=== PATIENT | male | born 1950 | race Caucasian/White ===

== ENCOUNTER 2019-12-20 04:15 | Outpatient (CLI) | payer OTHER, SELFPAY ==
[2019-12-20 09:12] LABS: HGB 15.1 g/dL (13.5-17.5); Mean Corp. HGB Concentration 32.8 g/dL (32.0-36.0); Mean Corpuscular Hemoglobin 29.3 pg (27.0-33.0); Mean Corpuscular Volume 89.3 fL (80-95); Mean Platelet Volume 9.3 fL (8.0-11.0); Platelet Count 238 x1000/uL (130-400); RBC 5.15 m/cumm (4.50-6.00); RBC Distribution Width 13.8 % (11.8-14.1); White Blood Cell Count 5.46 k/cumm (4.4-10.8)
[2019-12-20 10:15] LABS: ALT 32 U/L (16-63); AST 18 U/L (15-37); Albumin 3.8 g/dL (3.4-5.0); Alkaline Phosphatase 56 U/L (46-116); Anion Gap 6.1 mmol/L (3-11); BUN 21 mg/dL (7-18); Bilirubin, Total 0.5 mg/dL (0.2-1.0); CO2 30.9 mmol/L (21.0-32.0); CREATININE 0.99 mg/dL (0.70-1.30); Calcium 9.2 mg/dL (8.5-10.1); Chloride 104 mmol/L (98-107); Glucose 102 mg/dL (74-106); Sodium 141 mmol/L (136-145); Total Protein 6.7 g/dL (6.4-8.2)
== END 2019-12-20 04:35 ==
PROVIDERS: PCP Family Medicine; Visit Provider Family Medicine
DX: I10 Essential (primary) hypertension (principal)
CPT/HCPCS: 36415; 80053; 85027

== ENCOUNTER 2021-01-28 02:56 | Outpatient (CLI) | payer OTHER, SELFPAY ==
[2021-01-28 12:35] LABS: CREATININE 1.1 mg/dL (0.70-1.30); Calculated LDL 115 mg/dL (<100); Cholesterol 188 mg/dL (<200); HDL Cholesterol 46 mg/dL (40-60); Potassium 4.3 mmol/L (3.5-5.1); Triglyceride 136 mg/dL (<150)
[2021-01-28 17:32] LABS: PSA, Screening 0.7 ng/mL (0.0-6.5)
== END 2021-01-28 02:57 | disposition home or self-care (01) ==
PROVIDERS: PCP Nurse Practitioner Family; Visit Provider Family Medicine
DX: E78.5 Hyperlipidemia, unspecified (principal); I10 Essential (primary) hypertension; Z12.5 Encounter for screening for malignant neoplasm of prostate
CPT/HCPCS: 36415; 80061; 84153; 82565; 84132

== ENCOUNTER 2022-05-27 10:48 | Outpatient (REF) | payer OTHER, SELFPAY ==
[2022-05-26 21:13] LABS: Uric Acid 5.7 mg/dL (3.5-7.2)
== END 2022-05-27 10:49 | disposition home or self-care (01) ==
LOC: LBN 10:48
PROVIDERS: PCP Nurse Practitioner Family; Visit Provider Nurse Practitioner Family
DX: M79.671 Pain in right foot (principal)
CPT/HCPCS: 84550

== ENCOUNTER → 2022-05-28 10:56 | Outpatient (CLI) | payer OTHER, SELFPAY ==
--- NOTE | 2022-05-28 14:30 | DI.RAD_ITS ---
Exam(s) XR FOOT RT COMPLETE EXAM: XR FOOT RT COMPLETE CLINICAL HISTORY: acute right foot pain, rule out abnormalities M79.673 PAIN IN FOOT. TECHNIQUE: 2D digital imaging was performed of the right foot. Three images were obtained. AP, obl ique and lateral views were obtained. COMPARISON: No exams were available for comparison FINDINGS: BONES: No acute fracture is present. No bony destructive lesion is seen. There is a small enthesophyt e at the posterior superior calcaneus. JOINTS: No dislocation present. There are mild degenerative changes of the foot particularly at the 1 st MTP joint. There is joint space narrowing and periarticular spurring present. SOFT TISSUE: Normal. IMPRESSION: No acute fracture or dislocation. DATA REPOSITORY: RADIATION DOSE DELIVERED:
== END ==
PROVIDERS: PCP Nurse Practitioner Family; Visit Provider Nurse Practitioner Family
DX: M79.671 Pain in right foot (principal)
CPT/HCPCS: 73630

== ENCOUNTER 2022-07-03 01:38 | Outpatient (CLI) | payer OTHER, SELFPAY ==
[2022-07-03 16:16] LABS: CREATININE 1.1 mg/dL (0.70-1.30); Estimated GFR 71.32 (mL/min/1.73m2); Potassium 3.5 mmol/L (3.5-5.1)
== END 2022-07-03 01:39 | disposition home or self-care (01) ==
LOC: LBO 01:38
PROVIDERS: PCP Nurse Practitioner Family; Visit Provider Nurse Practitioner Family
DX: I10 Essential (primary) hypertension (principal)
CPT/HCPCS: 36415; 82565; 84132

== ENCOUNTER 2024-04-05 05:11 | Outpatient (CLI) | payer OTHER, SELFPAY ==
[2024-04-05 13:06] LABS: CREATININE 1.2 mg/dL (0.70-1.30); Calculated LDL 121 mg/dL (<100); Cholesterol 199 mg/dL (<200); Estimated GFR 63.46 (mL/min/1.73m2); HDL Cholesterol 49 mg/dL (40-60); Potassium 4.7 mmol/L (3.5-5.1); Triglyceride 148 mg/dL (<150)
[2024-04-05 22:51] LABS: PSA, Screening 0.9 ng/mL (<=6.5)
== END 2024-04-05 05:12 | disposition home or self-care (01) ==
LOC: LBO 05:11
PROVIDERS: PCP Nurse Practitioner Family; Visit Provider Nurse Practitioner Family
DX: Z13.6 Encounter for screening for cardiovascular disorders (principal); Z12.5 Encounter for screening for malignant neoplasm of prostate; I10 Essential (primary) hypertension
CPT/HCPCS: 36415; 80061; 84153; 82565; 84132

== ENCOUNTER 2024-12-19 16:18 | Outpatient (REF) | payer MEDICARE, SELFPAY | END 2024-12-19 16:19 | disposition home or self-care (01) | LOC: LBN 16:18 | PROVIDERS: PCP Nurse Practitioner Family; Visit Provider Registered Nurse | DX: L98.9 Disorder of the skin and subcutaneous tissue, unspecified (principal) | CPT/HCPCS: 87070; 87205 ==